=== PATIENT | male | born 1955 | race Two or more races ===

== ENCOUNTER 2022-10-15 10:00 | Outpatient (CLI) | payer MEDICARE, OTHER | END 2022-10-15 23:59 | disposition home or self-care (01) | LOC: MSC 10:00 | PROVIDERS: ATTEND Anesthesiology | DX: G89.4 Chronic pain syndrome (principal); I73.9 Peripheral vascular disease, unspecified; M79.605 Pain in left leg; Z89.512 Acquired absence of left leg below knee; M79.2 Neuralgia and neuritis, unspecified; Z79.891 Long term (current) use of opiate analgesic; Z79.899 Other long term (current) drug therapy; Z99.3 Dependence on wheelchair ==